=== PATIENT | female | born 1990 | race African-American/Black ===

== ENCOUNTER 2016-09-01 13:53 | Inpatient (IN) | payer SELFPAY ==
[~2016-09-01] VITALS: Ht 170.2 cm; Wt 65.8 kg
[2016-09-01 19:15] LABS: BASOPHILS % 0.9 % (0.0-2.0); EOSINOPHILS % 1.6 % (0.0-5.0); HEMATOCRIT. 32.6 % (36.0-48.0); HEMOGLOBIN. 10.7 g/dL (12.0-16.0); LYMPHOCYTES % 32.2 % (20.0-50.0); MEAN CORPUSCULAR HEMOGLOBIN 28.2 pg (28.0-32.0); MEAN CORPUSCULAR VOLUME 85.7 fL (81.0-99.0); MEAN PLATELET VOLUME 8.6 fl (7.4-10.4); MONOCYTES % 8.7 % (2.0-8.0); NEUTROPHILS % 56.6 % (40.0-76.0); PLATELET 308 x1000/uL (130-400); RED BLOOD CELL COUNT 3.81 mill/uL (4.2-5.4)
[2016-09-01 19:23] LABS: HCG SCREEN NEGATIVE; INR 1.1; PROTHROMBIN TIME 11.4 sec
[2016-09-01 19:25] LABS: CHLORIDE 104 mEq/L (98-107)
[2016-09-01 19:28] LABS: CARBON DIOXIDE 32 mEq/L (21-32)
[2016-09-01 20:34] LABS: CLARITY URINE CLEAR (CLEAR); COLOR URINE YELLOW (YELLOW); KETONES URINE NEGATIVE (NEGATIVE); LEUKOCYTE ESTERASE URINE NEGATIVE (NEGATIVE); NITRITE URINE NEGATIVE (NEGATIVE); OCCULT BLOOD URINE TRACE (NEGATIVE); PROTEIN URINE NEGATIVE (NEGATIVE); SPECIFIC GRAVITY URINE 1.022 (1.005-1.030)
[2016-09-01 20:46] LABS: *AMPHETAMINES SCREEN URINE NEGATIVE (NEGATIVE); *BARBITURATES SCREEN URINE NEGATIVE (NEGATIVE); *BENZODIAZEPINES SCREEN URINE NEGATIVE (NEGATIVE); *COCAINE SCREEN URINE NEGATIVE (NEGATIVE); METHADONE URINE SCREEN NEGATIVE (NEGATIVE); OPIATES URINE SCREEN NEGATIVE (NEGATIVE); PHENCYCLIDINE URINE SCREEN NEGATIVE (NEGATIVE)
[2016-09-01 21:36] LABS: CANNABINOID URINE SCREEN PRESUMTIVE POSITIVE (NEGATIVE)
[2016-09-02] MEDS: ACETAMINOPHEN WITH CODEINE 300/30MG TABLET PO PRN ×3 (03:01→22:20)
[2016-09-02] MEDS: CEFAZOLIN 1000MG PREMIX 50 ML IV SCH ×3 (05:51→18:09)
[2016-09-02] MEDS: LACTATED RINGERS 1,000 ML IV SCH ×2 (15:18→22:32)
[2016-09-02] MEDS: ONDANSETRON HCL 4MG/2ML VIAL IV PRN (22:26)
[2016-09-03] MEDS: CEFAZOLIN 1000MG PREMIX 50 ML IV SCH ×4 (03:36→21:15)
[2016-09-03 07:14] LABS: BASOPHILS % 0.5 % (0.0-2.0); EOSINOPHILS % 2.1 % (0.0-5.0); HEMATOCRIT. 32.6 % (36.0-48.0); LYMPHOCYTES % 43.1 % (20.0-50.0); MEAN CORPUSCULAR HEMOGLOBIN 28.7 pg (28.0-32.0); MEAN CORPUSCULAR VOLUME 84.8 fL (81.0-99.0); MEAN PLATELET VOLUME 8.7 fl (7.4-10.4); MONOCYTES % 8.8 % (2.0-8.0); NEUTROPHILS % 45.5 % (40.0-76.0); PLATELET 283 x1000/uL (130-400); RED BLOOD CELL COUNT 3.85 mill/uL (4.2-5.4)
[2016-09-03] MEDS: LACTATED RINGERS 1,000 ML IV SCH ×3 (07:20→21:16)
[2016-09-03 07:36] LABS: CARBON DIOXIDE 32 mEq/L (21-32); CHLORIDE 106 mEq/L (98-107)
[2016-09-03] MEDS: ACETAMINOPHEN WITH CODEINE 300/30MG TABLET PO PRN ×3 (07:47→16:05)
[2016-09-03] MEDS: ONDANSETRON HCL 4MG/2ML VIAL IV PRN (16:04)
[2016-09-04] MEDS: CEFAZOLIN 1000MG PREMIX 50 ML IV SCH ×4 (03:23→20:44)
[2016-09-04] MEDS: LACTATED RINGERS 1,000 ML IV SCH ×3 (07:09→22:48)
[2016-09-04] MEDS: ONDANSETRON HCL 4MG/2ML VIAL IV PRN (12:40)
[2016-09-04] MEDS: ACETAMINOPHEN WITH CODEINE 300/30MG TABLET PO PRN ×2 (12:43→22:51)
[2016-09-05] MEDS: CEFAZOLIN 1000MG PREMIX 50 ML IV SCH ×4 (03:52→22:18)
[2016-09-05] MEDS: LACTATED RINGERS 1,000 ML IV SCH ×3 (06:28→22:41)
[2016-09-05] MEDS: ACETAMINOPHEN WITH CODEINE 300/30MG TABLET PO PRN ×2 (11:01→22:35)
[2016-09-06] MEDS: CEFAZOLIN 1000MG PREMIX 50 ML IV SCH ×4 (02:49→20:56)
[2016-09-06] MEDS: ONDANSETRON HCL 4MG/2ML VIAL IV PRN (05:23)
[2016-09-06] MEDS: LACTATED RINGERS 1,000 ML IV SCH ×3 (07:13→23:09)
[2016-09-06 20:17] LABS: BASOPHILS % 0.7 % (0.0-2.0); EOSINOPHILS % 1.1 % (0.0-5.0); HEMATOCRIT. 35.9 % (36.0-48.0); HEMOGLOBIN. 11.8 g/dL (12.0-16.0); LYMPHOCYTES % 45.4 % (20.0-50.0); MEAN CORPUSCULAR HEMOGLOBIN 28.1 pg (28.0-32.0); MEAN CORPUSCULAR VOLUME 85.2 fL (81.0-99.0); MEAN PLATELET VOLUME 8.8 fl (7.4-10.4); MONOCYTES % 6.7 % (2.0-8.0); NEUTROPHILS % 46.1 % (40.0-76.0); PLATELET 303 x1000/uL (130-400); RED BLOOD CELL COUNT 4.22 mill/uL (4.2-5.4); RED CELL DISTRIBUTION WIDTH 12.9 % (11.6-14.6)
[2016-09-06 20:43] LABS: CHLORIDE 106 mEq/L (98-107)
[2016-09-06 20:51] LABS: CARBON DIOXIDE 31 mEq/L (21-32)
[2016-09-06] MEDS: ACETAMINOPHEN WITH CODEINE 300/30MG TABLET PO PRN (23:10)
[2016-09-07] MEDS: CEFAZOLIN 1000MG PREMIX 50 ML IV SCH ×2 (02:13→09:16)
[2016-09-07] MEDS ORDERED: ACETAMINOPHEN WITH CODEINE 300/30MG TABLET PO PRN (03:00)
[2016-09-07] MEDS: LACTATED RINGERS 1,000 ML IV SCH ×2 (05:46→12:57)
[2016-09-07] MEDS: ONDANSETRON HCL 4MG/2ML VIAL IV PRN (09:16)
[2016-09-07 16:00] VITALS: BP 115/59
== END 2016-09-07 16:40 | disposition home or self-care (01) | DRG 532 ==
LOC: ER 19:52 → 6EST 23:11 → ENRESERV 23:23
PROVIDERS: ADMIT Obstetrics & Gynecology; ATTEND Obstetrics & Gynecology
DX: N83.201 Unspecified ovarian cyst, right side (principal); N70.93 Salpingitis and oophoritis, unspecified; F12.90 Cannabis use, unspecified, uncomplicated; N83.202 Unspecified ovarian cyst, left side
CPT/HCPCS: 36415; 71010; 74176; 76830; 76856; 80053; 80305; 81001; 81025; 83605; 83690; 84703; 85025; 85610; 87040; 87086; 93005; 99285; J0690; J2405; J7120

== ENCOUNTER 2017-02-25 09:58 | Emergency (ER) | payer SELFPAY ==
[~2017-02-25] VITALS: Ht 167.6 cm; Wt 76.0 kg
[2017-02-25 12:18] VITALS: BP 105/56
[2017-02-25] MEDS: IBUPROFEN 600MG TABLET PO ONE (12:18)
== END 2017-02-25 12:33 | disposition home or self-care (01) ==
LOC: ER 10:51
DX: M54.9 Dorsalgia, unspecified (principal); V49.19XA Passenger injured in collision with other motor vehicles in nontraffic accident, initial encounter; Y93.89 Activity, other specified; Y92.410 Unspecified street and highway as the place of occurrence of the external cause; Y99.8 Other external cause status
CPT/HCPCS: 81025; 99282

== ENCOUNTER 2017-04-09 09:12 | Emergency (ER) | payer SELFPAY ==
[~2017-04-09] VITALS: Ht 167.6 cm; Wt 62.0 kg
[2017-04-09 12:20] VITALS: BP 105/55
== END 2017-04-09 12:23 | disposition home or self-care (01) ==
LOC: ER 09:12
DX: M25.551 Pain in right hip (principal); M54.2 Cervicalgia; V49.88XA Car occupant (driver) (passenger) injured in other specified transport accidents, initial encounter; Y93.89 Activity, other specified; Y92.410 Unspecified street and highway as the place of occurrence of the external cause; Y99.8 Other external cause status
CPT/HCPCS: 81025; 99283

== ENCOUNTER 2018-11-03 18:41 | Emergency (ER) | payer SELFPAY ==
[~2018-11-03] VITALS: Ht 167.6 cm; Wt 75.0 kg
[2018-11-03] MEDS ORDERED: SODIUM CHLORIDE 0.9% 500 ML IV ONE (19:30)
[2018-11-03] MEDS ORDERED: METOCLOPRAMIDE HCL 10MG/2ML VIAL IV ONE (19:30)
[2018-11-03] MEDS ORDERED: DIPHENHYDRAMINE 50MG/ML VIAL IV ONE (19:30)
[2018-11-03 22:52] VITALS: BP 98/43
== END 2018-11-03 22:52 | disposition home or self-care (01) ==
LOC: ER 18:41
DX: G43.909 Migraine, unspecified, not intractable, without status migrainosus (principal); F12.90 Cannabis use, unspecified, uncomplicated
CPT/HCPCS: 96374; 96375; 99283; J1200; J2765; J7040

== ENCOUNTER 2019-11-26 10:32 | Emergency (ER) | payer OTHER ==
[~2019-11-26] VITALS: Ht 167.6 cm; Wt 62.0 kg
[2019-11-26] MEDS ORDERED: ACETAMINOPHEN 325MG TABLET PO ONE (10:45)
[2019-11-26 11:53] VITALS: BP 100/60
== END 2019-11-26 11:58 | disposition home or self-care (01) ==
LOC: ER 10:39
DX: M79.644 Pain in right finger(s) (principal); D64.9 Anemia, unspecified; G43.909 Migraine, unspecified, not intractable, without status migrainosus; F12.10 Cannabis abuse, uncomplicated
CPT/HCPCS: 29130; 73140; 99283

== ENCOUNTER 2020-02-05 22:28 | Emergency (ER) | payer OTHER ==
[~2020-02-05] VITALS: Ht 167.6 cm; Wt 65.0 kg
[2020-02-05] MEDS ORDERED: CYCLOBENZAPRINE 10MG TABLET PO ONE (23:15)
[2020-02-05] MEDS ORDERED: KETOROLAC 30MG/ML VIAL IM ONE (23:15)
[2020-02-06 00:51] VITALS: BP 112/69
== END 2020-02-06 00:53 | disposition home or self-care (01) ==
LOC: ER 22:28
DX: S39.012A Strain of muscle, fascia and tendon of lower back, initial encounter (principal); S16.1XXA Strain of muscle, fascia and tendon at neck level, initial encounter; V49.59XA Passenger injured in collision with other motor vehicles in traffic accident, initial encounter; Y93.89 Activity, other specified; Y92.89 Other specified places as the place of occurrence of the external cause; Y99.8 Other external cause status; F12.10 Cannabis abuse, uncomplicated; S29.012A Strain of muscle and tendon of back wall of thorax, initial encounter
CPT/HCPCS: 81025; 96372; 99283; J1885

== ENCOUNTER 2020-05-16 13:03 | Emergency (ER) | payer OTHER ==
[~2020-05-16] VITALS: Ht 165.1 cm; Wt 63.0 kg
[2020-05-16] MEDS ORDERED: FAMOTIDINE 20MG/2ML VIAL IV STA (13:22)
[2020-05-16] MEDS ORDERED: ONDANSETRON HCL 4MG/2ML INJ IV STA (13:22)
[2020-05-16] MEDS ORDERED: SODIUM CHLORIDE 0.9% 1,000 ML IV ONE (13:30)
[2020-05-16 13:54] LABS: BASOPHILS % 0.8 % (0.0-2.0); EOSINOPHILS % 0.3 % (0.0-5.0); HEMATOCRIT. 40.8 % (36.0-48.0); HEMOGLOBIN. 13.6 g/dL (12.0-16.0); MEAN CORPUSCULAR HEMOGLOBIN 29.4 pg (28.0-32.0); MEAN CORPUSCULAR VOLUME 88.4 fL (81.0-99.0); MEAN PLATELET VOLUME 9.3 fl (7.4-10.4); MONOCYTES % 5.8 % (2.0-8.0); NEUTROPHILS % 47.1 % (40.0-76.0); PLATELET 210 x1000/uL (130-400); RED BLOOD CELL COUNT 4.61 mill/uL (4.2-5.4); RED CELL DISTRIBUTION WIDTH 12.7 % (11.6-14.6)
[2020-05-16 14:02] LABS: CHLORIDE 110 mEq/L (98-107)
[2020-05-16 14:10] LABS: HCG SCREEN NEGATIVE
[2020-05-16] MEDS ORDERED: ONDA4TAB5 MT (15:41)
[2020-05-16 15:49] VITALS: BP 112/78
== END 2020-05-16 15:50 | disposition home or self-care (01) ==
LOC: ER 13:03
DX: R11.10 Vomiting, unspecified (principal); R19.7 Diarrhea, unspecified; R03.0 Elevated blood-pressure reading, without diagnosis of hypertension
CPT/HCPCS: 36415; 80053; 81025; 83690; 84703; 85025; 93005; 96361; 96374; 96375; 99284; J2405; J3490; J7030; Z7610

== ENCOUNTER 2020-10-12 10:16 | Emergency (ER) | payer OTHER ==
[~2020-10-12] VITALS: Ht 165.1 cm; Wt 70.0 kg
[~2020-10-12 10:16] MED LIST: ONDA4TAB5 MT
[2020-10-12] MEDS ORDERED: KETOROLAC 30MG/ML VIAL IV STA (11:12)
[2020-10-12] MEDS ORDERED: ONDANSETRON HCL 4MG/2ML INJ IV STA (11:12)
[2020-10-12] MEDS ORDERED: FAMOTIDINE 20MG/2ML VIAL IV STA (11:12)
[2020-10-12] MEDS ORDERED: SODIUM CHLORIDE 0.9% 1,000 ML IV ONE (11:15)
[2020-10-12 11:57] LABS: EOSINOPHILS % 0.5 % (0.0-5.0); HEMOGLOBIN. 13.2 g/dL (12.0-16.0); LYMPHOCYTES % 37.2 % (20.0-50.0); MEAN CORPUSCULAR HEMOGLOBIN 29.2 pg (28.0-32.0); MEAN CORPUSCULAR VOLUME 88.7 fL (81.0-99.0); MEAN PLATELET VOLUME 9.6 fl (7.4-10.4); MONOCYTES % 5.1 % (2.0-8.0); NEUTROPHILS % 56.2 % (40.0-76.0); PLATELET 218 x1000/uL (130-400); RED BLOOD CELL COUNT 4.51 mill/uL (4.2-5.4); RED CELL DISTRIBUTION WIDTH 12.7 % (11.6-14.6)
[2020-10-12 12:02] LABS: CHLORIDE 111 mEq/L (98-107)
[2020-10-12 12:31] LABS: HCG SCREEN NEGATIVE
[2020-10-12] MEDS ORDERED: FAMO-135 MT (12:43)
[2020-10-12] MEDS ORDERED: ONDA4TAB5 MT (12:43)
[2020-10-12 13:06] VITALS: BP 125/68
== END 2020-10-12 13:07 | disposition home or self-care (01) ==
LOC: ER 11:12
DX: R11.2 Nausea with vomiting, unspecified (principal); R19.7 Diarrhea, unspecified; F12.10 Cannabis abuse, uncomplicated
CPT/HCPCS: 36415; 80053; 83690; 84703; 85025; 93005; 96361; 96374; 96375; 99284; J1885; J2405; J3490; J7030

== ENCOUNTER 2020-10-27 20:47 | Emergency (ER) | payer OTHER ==
[~2020-10-27] VITALS: Ht 165.1 cm; Wt 85.0 kg
[~2020-10-27 20:47] MED LIST changes: +FAMO-135 MT
[2020-10-27 21:11] VITALS: BP 101/63
[2020-10-27] MEDS ORDERED: ACETAMINOPHEN 325MG TABLET PO ONE (23:30)
[2020-10-27] MEDS ORDERED: IBUPROFEN 600MG TABLET PO ONE (23:30)
[2020-10-27] MEDS ORDERED: NAPR-1176 MT (23:59)
[2020-10-27] MEDS ORDERED: ACET-2708 MT (23:59)
== END 2020-10-28 00:17 | disposition home or self-care (01) ==
LOC: ER 20:47
DX: M54.2 Cervicalgia (principal); M54.89 Other dorsalgia; F12.10 Cannabis abuse, uncomplicated; Z88.2 Allergy status to sulfonamides; Z98.890 Other specified postprocedural states; V43.62XA Car passenger injured in collision with other type car in traffic accident, initial encounter; Y93.89 Activity, other specified; Y92.488 Other paved roadways as the place of occurrence of the external cause
CPT/HCPCS: 81025; 99283

== ENCOUNTER 2020-11-16 22:18 | Emergency (ER) | payer OTHER ==
[~2020-11-16] VITALS: Ht 167.6 cm; Wt 85.0 kg
[~2020-11-16 22:18] MED LIST changes: +ACET-2708 MT; +NAPR-1176 MT
[2020-11-17] MEDS ORDERED: ONDANSETRON HCL 4MG/2ML INJ IV STA (05:22)
[2020-11-17] MEDS ORDERED: SODIUM CHLORIDE 0.9% 1,000 ML IV ONE (05:30)
[2020-11-17 05:52] LABS: BASOPHILS % 0.5 % (0.0-2.0); EOSINOPHILS % 0.8 % (0.0-5.0); HEMATOCRIT. 38.5 % (36.0-48.0); HEMOGLOBIN. 12.7 g/dL (12.0-16.0); LYMPHOCYTES % 43.1 % (20.0-50.0); MEAN CORPUSCULAR HEMOGLOBIN 29.4 pg (28.0-32.0); MEAN CORPUSCULAR VOLUME 88.9 fL (81.0-99.0); MEAN PLATELET VOLUME 9.2 fl (7.4-10.4); MONOCYTES % 6.9 % (2.0-8.0); NEUTROPHILS % 48.7 % (40.0-76.0); PLATELET 199 x1000/uL (130-400); RED BLOOD CELL COUNT 4.33 mill/uL (4.2-5.4); RED CELL DISTRIBUTION WIDTH 12.9 % (11.6-14.6)
[2020-11-17 05:59] LABS: CHLORIDE 109 mEq/L (98-107)
[2020-11-17 06:02] LABS: PROTHROMBIN TIME 10.6 sec (9.6-11.0)
[2020-11-17 06:03] LABS: ETHANOL BLOOD < 10 mg/dL
[2020-11-17 06:12] LABS: HCG SCREEN NEGATIVE
[2020-11-17] MEDS ORDERED: IMIT50 MT (07:25)
[2020-11-17 07:30] VITALS: BP 133/67
== END 2020-11-17 07:43 | disposition home or self-care (01) ==
LOC: ER 22:18
DX: G43.909 Migraine, unspecified, not intractable, without status migrainosus (principal); Z79.899 Other long term (current) drug therapy
CPT/HCPCS: 36415; 76700; 80053; 80320; 81025; 83605; 83690; 84703; 85025; 85610; 86850; 86900; 86901; 93005; 96374; 99285; J2405; J7030; G0480

== ENCOUNTER 2021-01-26 19:51 | Emergency (ER) | payer OTHER ==
[~2021-01-26] VITALS: Ht 167.6 cm; Wt 82.0 kg
[~2021-01-26 19:51] MED LIST changes: +IMIT50 MT
[2021-01-26] MEDS ORDERED: IBUP-2028 MT (21:12)
[2021-01-26] MEDS ORDERED: IBUPROFEN 400MG TABLET PO ONE (21:15)
[2021-01-26 21:30] VITALS: BP 157/97
== END 2021-01-26 23:02 | disposition home or self-care (01) ==
LOC: ER 19:51
DX: M79.18 Myalgia, other site (principal); D64.9 Anemia, unspecified; G43.909 Migraine, unspecified, not intractable, without status migrainosus; Z79.899 Other long term (current) drug therapy; V49.59XA Passenger injured in collision with other motor vehicles in traffic accident, initial encounter; Y93.89 Activity, other specified; Y92.89 Other specified places as the place of occurrence of the external cause; Y99.8 Other external cause status
CPT/HCPCS: 81025; 99282

== ENCOUNTER 2022-02-24 14:15 | Emergency (ER) | payer MEDICAID, OTHER ==
[~2022-02-24] VITALS: Ht 165.1 cm; Wt 79.0 kg
[~2022-02-24 14:15] MED LIST changes: +IBUP-2028 MT
[2022-02-24 14:21] VITALS: BP 129/74
[2022-02-24 17:57] LABS: BASOPHILS % 0.4 % (0.0-2.0); EOSINOPHILS % 0.6 % (0.0-5.0); HEMATOCRIT. 39.9 % (36.0-48.0); HEMOGLOBIN. 13.2 g/dL (12.0-16.0); LYMPHOCYTES % 47.2 % (20.0-50.0); MEAN CORPUSCULAR HEMOGLOBIN 29.1 pg (28.0-32.0); MEAN CORPUSCULAR VOLUME 87.8 fL (81.0-99.0); MEAN PLATELET VOLUME 9.3 fl (7.4-10.4); MONOCYTES % 6.8 % (2.0-8.0); PLATELET 257 x1000/uL (130-400); RED BLOOD CELL COUNT 4.55 mill/uL (4.2-5.4); RED CELL DISTRIBUTION WIDTH 12.9 % (11.6-14.6)
[2022-02-24 18:07] LABS: CHLORIDE 106 mEq/L (98-107)
[2022-02-24] MEDS ORDERED: ONDA4TAB50 MT (18:59)
== END 2022-02-24 19:55 | disposition home or self-care (01) ==
LOC: ER 14:15
DX: K52.9 Noninfective gastroenteritis and colitis, unspecified (principal); Z86.59 Personal history of other mental and behavioral disorders
CPT/HCPCS: 36415; 80053; 85025; 99283

== ENCOUNTER 2022-09-11 06:21 | Emergency (ER) | payer MEDICAID, OTHER ==
[~2022-09-11] VITALS: Ht 165.1 cm; Wt 78.0 kg
[~2022-09-11 06:21] MED LIST changes: +ONDA4TAB50 MT
[2022-09-11 06:34] VITALS: PULSE 60
[2022-09-11 06:40] VITALS: BP 107/59; RESP 14; TEMP 97.8; O2SAT 100
[2022-09-11 07:18] LABS: BASOPHILS % 0.7 % (0.0-2.0); HEMATOCRIT. 38.5 % (36.0-48.0); LYMPHOCYTES % 37.8 % (20.0-50.0); MEAN CORPUSCULAR HEMOGLOBIN 29.7 pg (28.0-32.0); MEAN CORPUSCULAR VOLUME 87.7 fL (81.0-99.0); MEAN PLATELET VOLUME 9.2 fl (7.4-10.4); MONOCYTES % 7.3 % (2.0-8.0); NEUTROPHILS % 53.2 % (40.0-76.0); PLATELET 234 x1000/uL (130-400); RED BLOOD CELL COUNT 4.39 mill/uL (4.2-5.4); RED CELL DISTRIBUTION WIDTH 13.5 % (11.6-14.6)
[2022-09-11 07:24] LABS: CHLORIDE 111 mEq/L (98-107)
[2022-09-11 09:29] LABS: CLARITY URINE CLEAR (CLEAR); COLOR URINE YELLOW (YELLOW); KETONES URINE NEGATIVE (NEGATIVE); LEUKOCYTE ESTERASE URINE NEGATIVE (NEGATIVE); NITRITE URINE NEGATIVE (NEGATIVE); OCCULT BLOOD URINE NEGATIVE (NEGATIVE); PH URINE 7.5 (4.5-8.0); PROTEIN URINE NEGATIVE (NEGATIVE); SPECIFIC GRAVITY URINE 1.018 (1.005-1.030)
== END 2022-09-11 14:36 | disposition home or self-care (01) ==
LOC: ER 06:21
DX: R11.10 Vomiting, unspecified (principal); R19.7 Diarrhea, unspecified; D64.9 Anemia, unspecified; G43.909 Migraine, unspecified, not intractable, without status migrainosus; Z79.899 Other long term (current) drug therapy
CPT/HCPCS: 36415; 80053; 81003; 81025; 85025; 99283

== ENCOUNTER 2023-07-22 10:48 | Emergency (ER) | payer SELFPAY ==
[~2023-07-22] VITALS: Ht 165.1 cm; Wt 78.0 kg
[2023-07-22 11:29] VITALS: O2SAT 99
[2023-07-22 11:53] LABS: BASOPHILS % 0.7 % (0.0-2.0); EOSINOPHILS % 0.2 % (0.0-5.0); HEMATOCRIT. 39.5 % (36.0-48.0); HEMOGLOBIN. 12.9 g/dL (12.0-16.0); MEAN CORPUSCULAR HEMOGLOBIN 29.1 pg (28.0-32.0); MEAN CORPUSCULAR HGB CONC 32.7 g/dL (31.0-37.0); MEAN PLATELET VOLUME 9.4 fl (7.4-10.4); MONOCYTES % 4.4 % (2.0-8.0); NEUTROPHILS % 58.7 % (40.0-76.0); PLATELET 210 x1000/uL (130-400); RED BLOOD CELL COUNT 4.44 mill/uL (4.2-5.4); RED CELL DISTRIBUTION WIDTH 13.1 % (11.6-14.6); WHITE BLOOD COUNT 4.6 x1000/uL (4.5-11.0)
[2023-07-22] MEDS: ONDANSETRON 4MG ODT PO ONE (12:04)
[2023-07-22 12:11] LABS: CHLORIDE 110 mEq/L (98-107); POTASSIUM 4.1 mEq/L (3.5-5.1); SODIUM 141 mEq/L (136-145)
[2023-07-22 12:13] LABS: CARBON DIOXIDE 26 mEq/L (21-32)
[2023-07-22 12:18] LABS: CREATININE 0.8 mg/dL (0.6-1.0); GLUCOSE 78 mg/dL (70-105); UREA NITROGEN BLOOD 9 mg/dL (9-23)
[2023-07-22 12:20] LABS: ALANINE AMINOTRANSFERASE 11 IU/L (10-49); ASPARTATE AMINOTRANSFERASE 18 IU/L (<34); BILIRUBIN DIRECT 0.1 mg/dL (<=3.0); BILIRUBIN TOTAL 0.4 mg/dL (0.1-1.0); PROTEIN TOTAL 7.1 g/dL (6.0-8.3)
[2023-07-22] MEDS ORDERED: ONDA4TAB11 PO (12:29)
[2023-07-22] MEDS ORDERED: LOPE2CAP MT (12:29)
[2023-07-22 12:35] VITALS: BP 109/75; PULSE 68; RESP 18; TEMP 98.7
[2023-07-22 12:37] LABS: CLARITY URINE CLEAR (CLEAR); COLOR URINE YELLOW (YELLOW); GLUCOSE URINE NEGATIVE (NEGATIVE); KETONES URINE NEGATIVE (NEGATIVE); LEUKOCYTE ESTERASE URINE TRACE (NEGATIVE); NITRITE URINE NEGATIVE (NEGATIVE); OCCULT BLOOD URINE NEGATIVE (NEGATIVE); PH URINE 6.5 (4.5-8.0); PROTEIN URINE NEGATIVE (NEGATIVE)
[2023-07-22 13:15] LABS: HCG SCREEN NEGATIVE
[2023-07-22 13:16] LABS: CALCIUM 9.4 mg/dL (8.7-10.4)
[2023-07-22 14:03] LABS: BACTERIA URINE 1+; SQUAMOUS EPITHELIAL CELL URINE 2+ /lpf (RARE/1+)
[2023-07-22 14:04] LABS: RBC URINE 0-2 /hpf (0-2); WBC URINE 0-2 /hpf (0-2)
== END 2023-07-22 12:43 | disposition home or self-care (01) ==
LOC: ER 10:48
DX: K52.9 Noninfective gastroenteritis and colitis, unspecified (principal); Z79.899 Other long term (current) drug therapy
CPT/HCPCS: 99283; 80076; 80048; 81003; 81025; 84703; 85025; 36415; Q0162